=== PATIENT | male | born 1975 | race Two or more races ===

== ENCOUNTER 2019-08-10 10:01 | Emergency (ER) | payer OTHER ==
[~2019-08-10] VITALS: Ht 175.3 cm; Wt 83.0 kg
--- NOTE | 2019-08-10 10:34 | NUR ---
[id number] [facility] home c/o bue, rle numbness while taking a shower around 0730 last known well: 0700. on room air, breathing evenly and unlabored. connected to the monitor and pulse ox. kept comfortable, will continue to monitor accordingly.
[2019-08-10 10:36] LABS: BASOPHILS # (AUTO) 0.1 /CMM (0.0-0.2); BASOPHILS % (AUTO) 2.5 % (0.0-2.0); EOSINOPHILS % (AUTO) 2.4 % (0.0-6.0); HEMATOCRIT 47 % (39-51); HEMOGLOBIN 15.7 g/dL (13.5-17.5); LYMPHOCYTES # (AUTO) 1.8 /CMM (0.8-4.8); LYMPHOCYTES % (AUTO) 30.7 % (20.0-44.0); MEAN CORPUSCULAR HGB CONC 34 g/dl (31.0-36.0); MEAN CORPUSCULAR VOLUME 91 fL (80-96); MONOCYTES # (AUTO) 0.6 /CMM (0.1-1.30); MONOCYTES % (AUTO) 10.2 % (2.0-12.0); NEUTROPHILS # (AUTO) 3.1 /CMM (1.8-8.9); NEUTROPHILS % (AUTO) 54.2 % (43.0-81.0); PLATELET COUNT (AUTO) 274 /CMM (150-450); RED BLOOD CELL COUNT(AUTO) 5.15 MIL/uL (4.5-6.0); WHITE BLOOD COUNT (AUTO) 5.8 K/uL (4.3-11.0)
[2019-08-10 10:43] LABS: CALCIUM, SERUM 9.6 mg/dL (8.5-10.1); CARBON DIOXIDE 26 mmol/L (21-32); CHLORIDE 103 mmol/L (98-107); GLUCOSE 120 mg/dL (74-106); POTASSIUM 4.1 mmol/L (3.5-5.1); SODIUM SERUM 141 mmol/L (136-145); UREA NITROGEN, BLOOD 9 mg/dL (7-18)
--- NOTE | 2019-08-10 10:45 | NUR ---
wheeled patient to ct scan
[2019-08-10 10:49] LABS: ALANINE AMINOTRANSFERASE 61 U/L (12-78); ALBUMIN 4.2 g/dL (3.4-5.0); ALKALINE PHOSPHATASE 93 U/L (46-116); ASPARTATE AMINOTRANSFERASE 34 U/L (15-37); BILIRUBIN,DIRECT 0.1 mg/dL (0.0-0.2); BILIRUBIN,TOTAL 0.4 mg/dL (0.2-1.0); TOTAL PROTEIN, SERUM 8.2 g/dL (6.4-8.2)
--- NOTE | 2019-08-10 10:53 | NUR ---
patient came back from ct
[2019-08-10] MEDS ORDERED: IOHEXOL-350 100 ML VIAL IV ONE (11:45)
[2019-08-10] MEDS ORDERED: IV NS 0.9% 250 ML IV ONE (11:45)
[2019-08-10] MEDS ORDERED: CT SWABBABLE VALVE TRANS SET 1 EA INFUS.SET MC ONE (11:45)
[2019-08-10 11:48] LABS: CHOLESTEROL 284 mg/dL (<200); HDL CHOLESTEROL 98 mg/dL (40-60); LDL 161 mg/dL (0-99); TRIGLYCERIDES 56 mg/dL (30-150)
--- NOTE | 2019-08-10 11:48 | NUR ---
wheeled patient via [facility] going for CT carotid angio.
--- NOTE | 2019-08-10 12:05 | NUR ---
patient came back from CTA
[2019-08-10 12:44] VITALS: BP 145/81
--- NOTE | 2019-08-10 12:45 | NUR ---
Patient discharged to home in stable condition. Written and verbal after care instructions given. Patient verbalizes understanding of instruction.IV removed. Catheter intact and site benign. Pressure and 4x4 applied to site. No bleeding noted.
== END 2019-08-10 12:45 | disposition home or self-care (01) ==
LOC: ER 10:03
DX: R53.1 Weakness (principal)
CPT/HCPCS: 36415; 70450; 70496; 70498; 71045; 80048; 80061; 80076; 84484; 85025; 85730; 93005; 99284; J7050; Q9967